=== PATIENT | male | born 1990 | race Caucasian/White ===

== ENCOUNTER 2016-11-10 16:28 | Emergency (ER) | payer OTHER ==
--- NOTE | 2016-11-10 17:50 | ER Document Report ---
ED Medical Screen (RME) - General Chief Complaint: Testicular Pain Stated Complaint: TESTICLE PAIN Time Seen by Provider: 11/10/16 17:41 Notes: This 26-year-old male patient with chronic testicle pain comes emergency room today stating he felt a sharp pain in the groin area last night getting in bed, and this morning noted a bruised area over the proximal thigh and groin area. This was near the right testicle which gives him the most discomfort. He states he went to [facility], showed them ultrasound of the testicles done in February 24, 2016 and they told him to come to the emergency room to be seen. That ultrasound showed bilateral epididymal head cysts, small varicoceles, and small hydroceles. I have greeted and performed a rapid initial assessment of this patient. A comprehensive ED assessment and evaluation of the patient, analysis of test results and completion of the medical decision making process will be conducted by additional ED providers. TRAVEL OUTSIDE OF THE [place] IN LAST 30 DAYS: No - Related Data Allergies/Adverse Reactions: No Known Allergies Allergy (Verified 11/10/16 16:32) Past Medical History - Social History Chew tobacco use (# tins/day): No Frequency of alcohol use: None Drug Abuse: None Pulmonary Medical History: Reports: Hx Asthma, Hx Bronchitis Renal/ Medical History: Denies: Hx Peritoneal Dialysis Psychiatric Medical History: Reports: Hx Depression Surgical Hx: Negative - Immunizations Hx Diphtheria, Pertussis, Tetanus Vaccination: No Physical Exam - Vital signs Vitals: Temp Pulse Resp BP Pulse Ox 97.9 F 72 20 127/88 H 98 11/10/16 16:33 11/10/16 16:33 11/10/16 16:33 11/10/16 16:33 11/10/16 16:33 Course - Vital Signs Vital signs: Temp Pulse Resp BP Pulse Ox 97.9 F 72 20 127/88 H 98 11/10/16 16:33 11/10/16 16:33 11/10/16 16:33 11/10/16 16:33 11/10/16 16:33
[2016-11-10 18:13] LABS: APPEARANCE,URINE CLEAR; BILIRUBIN,URINE NEGATIVE (NEGATIVE); GLUCOSE, URINE NEGATIVE (NEGATIVE); KETONES,URINE NEGATIVE (NEGATIVE); LEUKOCYTE ESTERASE,URINE NEGATIVE (NEGATIVE); NITRITE,URINE NEGATIVE (NEGATIVE); PROTEIN,URINE NEGATIVE (NEGATIVE); URINE SPECIFIC GRAVITY 1.025; UROBILINOGEN,URINE NEGATIVE mg/dL (<2.0)
--- NOTE | 2016-11-10 21:06 | ER Document Report ---
ED General - General Chief Complaint: Testicular Pain Stated Complaint: TESTICLE PAIN Time Seen by Provider: 11/10/16 17:41 Notes: Patient is a 26-year-old male who presents with an area of erythema to the right proximal thigh as well as chronic testicular pain. States the testicular pain has not changed today but [facility] due to the area of erythema on his right lower extremity. Describes the area as a constant, aching, stabbing pain. Nothing worsens the pain other than touching the area and he has not had anything to improve the pain. No history of similar symptoms. Notes that his testicles have a chronic daily pain is unchanged today and that this is not the primary reason for his emergency department visit today. TRAVEL OUTSIDE OF THE [place] IN LAST 30 DAYS: No - Related Data Allergies/Adverse Reactions: No Known Allergies Allergy (Verified 11/10/16 16:32) Past Medical History - General Information source: Patient - Social History Smoking Status: Never Smoker Chew tobacco use (# tins/day): No Frequency of alcohol use: None Drug Abuse: None Lives with: Spouse/Significant other Family History: Reviewed & Not Pertinent Patient has suicidal ideation: No Patient has homicidal ideation: No Pulmonary Medical History: Reports: Hx Asthma, Hx Bronchitis Renal/ Medical History: Denies: Hx Peritoneal Dialysis Psychiatric Medical History: Reports: Hx Depression Surgical Hx: Negative - Immunizations Hx Diphtheria, Pertussis, Tetanus Vaccination: No Review of Systems - Review of Systems Notes: Constitutional: Negative for fever. HENT: Negative for sore throat. Eyes: Negative for visual changes. Cardiovascular: Negative for chest pain. Respiratory: Negative for shortness of breath. Gastrointestinal: Negative for abdominal pain, vomiting or diarrhea. Genitourinary: Negative for dysuria. Musculoskeletal: Negative for back pain. Skin: Positive for rash. Neurological: Negative for headaches, weakness or numbness. 10 point ROS negative except as marked above and in HPI. Physical Exam - Vital signs Vitals: Temp Pulse Resp BP Pulse Ox 97.9 F 72 20 127/88 H 98 11/10/16 16:33 11/10/16 16:33 11/10/16 16:33 11/10/16 16:33 11/10/16 16:33 Interpretation: Normal Notes: PHYSICAL EXAMINATION: GENERAL: Well-appearing, well-nourished and in no acute distress. HEAD: Atraumatic, normocephalic. EYES: Pupils equal round and reactive to light, extraocular movements intact, sclera anicteric, conjunctiva are normal. ENT: nares patent, oropharynx clear without exudates. Moist mucous membranes. NECK: Normal range of motion, supple without lymphadenopathy LUNGS: Breath sounds clear to auscultation bilaterally and equal. No wheezes rales or rhonchi. HEART: Regular rate and rhythm without murmurs ABDOMEN: Soft, nontender, normoactive bowel sounds. No guarding, no rebound. No masses appreciated. : Positive cremasteric reflex bilaterally. No focal testicular tenderness or epididymal tenderness. EXTREMITIES: Normal range of motion, no pitting or edema. No cyanosis. NEUROLOGICAL: No focal neurological deficits. Moves all extremities spontaneously and on command. PSYCH: Normal mood, normal affect. SKIN: Warm, Dry, normal turgor, there is a small 0.25 cm x 0.25 cm area of erythema on the proximal lateral right thigh Course - Re-evaluation Re-evalutation: 11/10/16 21:04 Patient is presenting with chronic testicular pain unchanged today but states the actual reason for presentation is that he developed an area of erythema and pain to his right proximal thigh. Exam demonstrates an area of cellulitis in the right proximal thigh. No lymphadenopathy, no tracing or spreading redness. The testicular exam is without any concerning findings but does demonstrate an apparent varicocele on the left. Patient has on ultrasound report from several months ago which does demonstrate bilateral hydrocele. Nothing is new or different about his testicular pain itself today he states this is not the reason for his visit. No indication for repeat ultrasound at this time as I do not suspect an acute testicular torsion or epididymitis based on exam and history. I encouraged the patient to follow-up with urology regarding his chronic testicular pain. He was started on antibiotics for the area of cellulitis. At this time will discharge with return precautions and follow-up recommendations. Verbal discharge instructions given a the bedside and opportunity for questions given. Medication warnings reviewed. Patient is in agreement with this plan and has verbalized understanding of return precautions and the need for primary care follow-up in the next 24-72 hours. - Vital Signs Vital signs: Temp Pulse Resp BP Pulse Ox 97.6 F 57 L 16 111/75 98 11/10/16 21:16 11/10/16 21:16 11/10/16 21:16 11/10/16 21:16 11/10/16 21:16 Discharge - Discharge Clinical Impression: Chronic pain in testicle Cellulitis Qualifiers: Site of cellulitis: extremity Site of cellulitis of extremity: lower extremity Laterality: right Qualified Code(s): L03.115 - Cellulitis of right lower limb Condition: Good Disposition: HOME, SELF-CARE Additional Instructions: The rash is likely due to infection of your skin. You need to take the antibiotics as prescribed if the area does not resolve in the next 24 hours or gets worse. Do not stop even if the rash goes away until you have completed all the antibiotics. The area of redness was traced out here in the emergency department with a marking pen. You need to return to emergency department if the redness spreads outside of this area by more than 2 cm in any direction. You should also return if you develop fevers with temperature greater than 101, persistent vomiting, worsening pain, or have any other symptoms that are concerning to you. Prescriptions: Cephalexin Monohydrate [Keflex 500 mg Capsule] 500 mg PO QID #28 capsule
[2016-11-10 21:18] VITALS: BP 111/75
== END 2016-11-10 21:19 | disposition home or self-care (01) ==
LOC: ER 16:28
DX: N50.819 Testicular pain, unspecified (principal); G89.29 Other chronic pain; M79.604 Pain in right leg; L03.115 Cellulitis of right lower limb
CPT/HCPCS: 81001; 99284

== ENCOUNTER 2019-11-06 04:10 | Emergency (ER) | payer OTHER ==
[2019-11-06] MEDS ORDERED: NEOMY SULF/POLYMYX B SULF/HC OTIC SUSP 10 ML AS ONE (06:38)
--- NOTE | 2019-11-06 06:45 | ER Document Report ---
ED ENT - General Chief Complaint: Ear Pain Stated Complaint: LEFT EAR PAIN Time Seen by Provider: 11/06/19 06:26 Mode of Arrival: Ambulatory Information source: Patient, [facility] Records Notes: This 29-year-old male patient comes emergency room complaining of pain to his left ear. He states around 1 AM this morning he was trying to get wax out using a metal hook. He states he did get some wax out but on 1 of the attempts he felt severe pain deep in the ear. He did note some fluid coming out afterwards, but he also thinks there was water in the ear from the shower he had just taken. He reports that the pain in the right ear has been getting worse and the hearing is muffled on that side. He did take some ibuprofen prior to arrival. TRAVEL OUTSIDE OF THE [place] IN LAST 30 DAYS: No - Related Data Allergies/Adverse Reactions: No Known Allergies Allergy (Verified 11/10/16 16:32) Home Medications: daily inhaler. albuterol inhaler Past Medical History - General Information source: Patient, [facility] Records - Social History Smoking Status: Never Smoker Cigarette use (# per day): No Chew tobacco use (# tins/day): No Smoking Education Provided: No Frequency of alcohol use: None Drug Abuse: None Occupation: [employer] Lives with: Friend Family History: Reviewed & Not Pertinent Patient has homicidal ideation: No Pulmonary Medical History: Reports: Hx Asthma, Hx Bronchitis Renal/ Medical History: Reports: Hx Epididymitis Psychiatric Medical History: Reports: Hx Depression Surgical Hx: Negative - Immunizations Hx Diphtheria, Pertussis, Tetanus Vaccination: No Review of Systems - Review of Systems Constitutional: No symptoms reported EENT: No symptoms reported Cardiovascular: No symptoms reported Respiratory: No symptoms reported Gastrointestinal: No symptoms reported Genitourinary: Other - Chronic testicular pain Musculoskeletal: No symptoms reported Skin: No symptoms reported Hematologic/Lymphatic: No symptoms reported Neurological/Psychological: No symptoms reported Physical Exam - Vital signs Vitals: Temp Pulse Resp BP Pulse Ox 97.5 F 62 16 130/85 H 99 11/06/19 04:15 11/06/19 04:15 11/06/19 04:15 11/06/19 04:15 11/06/19 04:15 - General General appearance: Appears well, Alert In distress: None - HEENT Head: Normocephalic, Atraumatic Eyes: Normal Pupils: PERRL Ears: Normal External canal: Other - Left ear shows some edema to the external canal. There is a yellowish waxy appearance on the TM. The TM architecture is not well defined with suggest he may have hit the eardrum with the metal hook that he used. No definite external canal lacerations are seen and there is no blood seen. There was no tenderness from the speculum examination. Right ear exam shows no cerumen buildup and a clear normal-appearing TM. - Respiratory Respiratory status: No respiratory distress - Cardiovascular Rhythm: Regular - Abdominal Inspection: Normal - Back Back: Normal - Extremities General upper extremity: Normal inspection General lower extremity: Normal inspection - Neurological Neuro grossly intact: Yes - Psychological Associated symptoms: Normal affect, Normal mood - Skin Skin Temperature: Warm Skin Moisture: Dry Skin Color: Normal Course - Vital Signs Vital signs: Temp Pulse Resp BP Pulse Ox 97.5 F 62 16 130/85 H 99 11/06/19 04:54 11/06/19 04:15 11/06/19 04:15 11/06/19 04:15 11/06/19 04:15 Discharge - Discharge Clinical Impression: Injury of tympanic membrane of left ear Qualifiers: Encounter type: initial encounter Qualified Code(s): S09.302A - Unspecified injury of left middle and inner ear, initial encounter Condition: Stable Disposition: HOME, SELF-CARE Additional Instructions: Place the Cortisporin otic drops in your ear using 4 drops placed every [address] a cotton wick in the ear after you have put the drops in. Do not allow water to run into the ear when you are bathing. Follow-up with your doctor in 3 to 5 days for recheck of the ear, sooner if it is not improving.. RETURN TO THE EMERGENCY ROOM IF ANY NEW OR WORSENING SYMPTOMS.
[2019-11-06 07:14] VITALS: BP 122/81
== END 2019-11-06 07:14 | disposition home or self-care (01) ==
LOC: ER 04:10
DX: S09.302A Unspecified injury of left middle and inner ear, initial encounter (principal); X58.XXXA Exposure to other specified factors, initial encounter; J45.909 Unspecified asthma, uncomplicated
CPT/HCPCS: 99282; J3490